=== PATIENT | female | born 1975 | race Caucasian/White ===

== ENCOUNTER 2016-02-27 09:03 | Emergency (ER) | payer BC, OTHER ==
[2016-02-27] MEDS ORDERED: OPTIRAY 350 100 ML VIAL HMH IV ONE (09:04)
== END 2016-02-27 13:38 | disposition home or self-care (01) ==
LOC: ER 09:03
DX: N83.202 Unspecified ovarian cyst, left side (principal); Z79.899 Other long term (current) drug therapy
CPT/HCPCS: 36415; 74177; 80053; 81003; 83690; 84703; 85025; 87491; 87591; 87800